=== PATIENT | female | born 1995 | race Caucasian/White ===

== ENCOUNTER 2018-01-30 23:52 | Emergency (ER) | payer BC, OTHER ==
[~2018-01-30] VITALS: Ht 162.6 cm; Wt 52.2 kg
[2018-01-30 23:52] VITALS: BP 115/68
[2018-01-31 01:10] LABS: BILIRUBIN,URINE NEG (NEG); CLARITY,URINE CLOUDY; COLOR,URINE STRAW; GLUCOSE,URINE NEG (NEG)
[2018-01-31 01:11] LABS: BACTERIA,URINE FEW /HPF (0-FEW); NITRITE,URINE NEG (NEG); SQUAMOUS EPITHELIAL CELL,UR FEW /LPF; UROBILINOGEN,URINE 0.2 mg/dL (0.2 mg/dL)
[2018-01-31 01:23] LABS: U PREG PATIENT NEGATIVE (NEG)
[2018-01-31] MEDS ORDERED: SULF1TAB24 PO (01:36)
[2018-01-31] MEDS ORDERED: PHEN100T82 PO (01:36)
--- NOTE | 2018-01-31 01:37 | PHYS DOC ---
Adult General Chief Complaint Chief Complaint: BACK PAIN - NO INJURY HPI HPI 22-year-old female with a history of prior UTI now complains of dysuria and urgency. No fevers chills sweats or shaking chills. No nausea vomiting. Denies abdominal pain Review of Systems Review of Systems Constitutional: Denies fever or chills [] Eyes: Denies change in visual acuity, redness, or eye pain [] HENT: Denies nasal congestion or sore throat [] Respiratory: Denies cough or shortness of breath [] Cardiovascular: No additional information not addressed in HPI [] GI: Denies abdominal pain, nausea, vomiting, bloody stools or diarrhea [] : Denies dysuria or hematuria [] Musculoskeletal: Denies back pain or joint pain [] Integument: Denies rash or skin lesions [] Neurologic: Denies headache, focal weakness or sensory changes [] Endocrine: Denies polyuria or polydipsia [] All other systems were reviewed and found to be within normal limits, except as documented in this note. Current Medications Current Medications Current Medications Medications (Trade) Dose Ordered Sig/[place] Start Time Stop Time Status Last Admin Dose Admin Phenazopyridine HCl (Pyridium) 200 mg 1X ONCE 01/31/18 02:00 01/31/18 02:01 01/31/18 01:29 200 MG Trimethoprim/ Sulfamethoxazole (Bactrim Ds) 1 tab 1X ONCE 01/31/18 02:00 01/31/18 02:01 Allergies Allergies Allergies Coded Allergies Type Severity Reaction Last Updated Verified Penicillins Allergy Intermediate 07/09/16 Yes Physical Exam Physical Exam Constitutional: Well developed, well nourished, no acute distress, non-toxic appearance. [] HENT: Normocephalic, atraumatic, bilateral external ears normal, oropharynx moist, no oral exudates, nose normal. [] Eyes: PERRLA, EOMI, conjunctiva normal, no discharge. [] Neck: Normal range of motion, no tenderness, supple, no stridor. [] Cardiovascular:Heart rate regular rhythm, no murmur [] Lungs & Thorax: Bilateral breath sounds clear to auscultation [] Abdomen: Bowel sounds normal, soft, no tenderness, no masses, no pulsatile masses. [] Skin: Warm, dry, no erythema, no rash. [] Back: No tenderness, no CVA tenderness. [] Extremities: No tenderness, no cyanosis, no clubbing, ROM intact, no edema. [] Neurologic: Alert and oriented X 3, normal motor function, normal sensory function, no focal deficits noted. [] Psychologic: Affect normal, judgement normal, mood normal. [] Current Patient Data Lab Results Laboratory Tests Test 01/31/18 00:10 Urine Collection Type Void Urine Color Straw Urine Clarity Cloudy Urine pH 7.0 Urine Specific [place] 1.025 Urine Protein 100 mg/dl (NEG-TRACE) Urine Glucose (UA) Neg mg/dL (NEG) Urine Ketones (Stick) 15 mg/dL (NEG) Urine Blood Large (NEG) Urine Nitrite Neg (NEG) Urine Bilirubin Neg (NEG) Urine Urobilinogen Dipstick 0.2 mg/dL (0.2 mg/dL) Urine Leukocyte Esterase Large (NEG) Urine RBC 6-10 /HPF (0-2) Urine WBC 11-20 /HPF (0-4) Urine Squamous Epithelial Cells Few /LPF Urine Bacteria Few /HPF (0-FEW) Urine Mucus Mod /LPF Urine Test Negative (NEG) EKG EKG [] Radiology/Procedures Radiology/Procedures [] Course & Med Decision Making Course & Med Decision Making Pertinent Labs and Imaging studies reviewed. (See chart for details) Signs and symptoms consistent with UTI in a patient with a history thereof. Urinalysis consistent with urinary tract infection. Bactrim and Pyridium given in ED. Patient without clinical evidence of pyelonephritis. She is well- appearing without signs of systemic illness. No further workup or treatment indicated. Patient agrees with outpatient follow-up. Prescription for Pyridium and Bactrim dispensed. Strict return precautions given Dragon Disclaimer Dragon Disclaimer This electronic medical record was generated, in whole or in part, using a voice recognition dictation system. Departure Departure: Impression: Primary Impression: Urinary tract infection Additional Impression: Dysuria Disposition: 01 HOME, SELF-CARE Condition: GOOD Referrals: MANOLO AVILA (PCP) Patient Instructions: Urinary Tract Infection Additional Instructions: You have a urinary tract infection. Finish Bactrim as prescribed. Take Pyridium as prescribed as needed for burning with urination. Rest and drink plenty of fluids. Follow-up with your doctor in 2 days and return immediately for new severe worsening symptoms, specifically for flank pain associated with fevers and vomiting which would suggest that your urinary tract infection has evolved to pyelonephritis which means kidney infection. Scripts Phenazopyridine Hcl (PYRIDIUM) 100 Mg Tablet 100 MG PO TID, #6 TAB Prov: GARIMA NGUYEN MD 01/31/18 Sulfamethoxazole/Trimethoprim (BACTRIM DS TABLET) 1 Each Tablet 1 TAB PO BID, #10 TAB Prov: GARIMA NGUYEN MD 01/31/18 Problem Qualifiers GARIMA NGUYEN MD January 31, 2018 01:37
[2018-01-31] MEDS ORDERED: SMZ/TMP 800/160MG TABLET. PO ONE (02:00)
[2018-01-31] MEDS ORDERED: PHENAZOPYRIDINE 200 MG TABLET. PO ONE (02:00)
== END 2018-01-31 02:00 | disposition home or self-care (01) ==
LOC: ER 23:52
DX: N39.0 Urinary tract infection, site not specified (principal); Z87.440 Personal history of urinary (tract) infections; Z88.0 Allergy status to penicillin
CPT/HCPCS: 81001; 81025; 87086; 87186; 99284